=== PATIENT | female | born 1945 | race Caucasian/White ===

== ENCOUNTER 2016-04-16 16:28 | Inpatient (IN) | payer OTHER ==
[~2016-04-16] VITALS: Ht 162.6 cm; Wt 53.2 kg
[2016-04-16 17:24] LABS: HEMATOCRIT 37.5 % (36.0-46.0); MCH 30.2 PG (29.0-34.0); MCHC 34.1 G/DL (30.0-36.0); MCV 88.4 FL (83-99); MEAN PLAT.VOLUME 10.9 uM^3 (9.5-12.4); PLATELET COUNT 372 K/uL (156-360); RBC DIS.WIDTH-CV 13.7 % (11.8-14.6); RBC DIS.WIDTH-SD 43.4 % (39-53); RED BLOOD COUNT 4.24 M/uL (3.80-5.20); WHITE BLOOD COUNT 13.4 K/uL (4.1-10.2)
[2016-04-16 17:35] LABS: CHLORIDE 98 mEq/L (99-109); POTASSIUM 2.7 mEq/L (3.7-5.4); SODIUM 139 mEq/L (136-147)
[2016-04-16 17:37] LABS: GLUCOSE 85 mg/dL (70-99)
[2016-04-16 17:38] LABS: ANION GAP 15 MEQ/L (2-14)
[2016-04-16 17:39] LABS: TOTAL BILIRUBIN 0.3 mg/dL (0.0-1.0)
[2016-04-16 17:40] LABS: ALKALINE PHOSPHATASE 159 IU/L (3-129)
[2016-04-16 17:41] LABS: GFR ESTIMATE (CALCULATED) 58 mL/min/
[2016-04-16 17:42] LABS: UREA NITROGEN (BUN) 17 mg/dL (9-23)
[2016-04-16 18:53] LABS: INTER. NORMALIZED RATIO 1.1; PROTHROMBIN TIME 10.8 (9.2-11.2); PTT 31.7 (25-32)
[2016-04-16 19:19] LABS: MAGNESIUM 1.9 mg/dL (1.3-2.7)
[2016-04-16 19:30] LABS: TROP-I INTERPRETATION NEGATIVE; TROPONIN-I 0.02 ng/mL (0.0-0.30)
[2016-04-16 21:05] LABS: ADD MIUA? NO; BILIRUBIN NEGATIVE; BLOOD NEGATIVE; COLOR YELLOW ((YELLOW)); GLUCOSE (STRIP) NEGATIVE; KETONES 5; LEUKOCYTES NEGATIVE; NITRITE NEGATIVE; PROTEIN (STRIP) 30; SPECIFIC GRAVITY 1.029 (1.000-1.030); UCUL ADDED? NO; UROBILINOGEN 0.2 MG/DL (0.2-1.0)
[2016-04-16] MEDS ORDERED: ADVIL200 MG PO (22:07)
[2016-04-16] MEDS ORDERED: THERAGRAN1 TABLET PO (22:08)
[2016-04-16] MEDS ORDERED: TYLENOL EXTRA500 MG PO (22:08)
[2016-04-17] VITALS (7 sets, daily range): BP systolic 120–187; BP diastolic 63–99
[2016-04-17 07:20] LABS: HEMATOCRIT 32.5 % (36.0-46.0); MCH 30.5 PG (29.0-34.0); MCHC 33.8 G/DL (30.0-36.0); PLATELET COUNT 323 K/uL (156-360); RBC DIS.WIDTH-CV 14.1 % (11.8-14.6); RBC DIS.WIDTH-SD 46.8 % (39-53); RED BLOOD COUNT 3.61 M/uL (3.80-5.20)
[2016-04-17 07:42] LABS: ALKALINE PHOSPHATASE 114 IU/L (3-129); ANION GAP 7 MEQ/L (2-14); CHLORIDE 104 MEQ/L (99-109); GFR ESTIMATE (CALCULATED) > 59 mL/min/; GLUCOSE 132 mg/dL (70-99); POTASSIUM 4.3 MEQ/L (3.7-5.4); SAMPLE HEMOLYSIS CHECK 0; SAMPLE ICTERIC CHECK 0; SAMPLE LIPEMIA CHECK 0; SODIUM 138 MEQ/L (136-147); TOTAL BILIRUBIN 0.4 MG/DL (0.0-1.0); UREA NITROGEN (BUN) 12 mg/dL (9-23)
[2016-04-17 09:33] LABS: HDL CHOLESTEROL 28 MG/DL (Desirable>=50); LDL CHOLESTEROL 58 mg/dL (Desirable<100); NON-HDL CHOLESTEROL 79 mg/dL (Desirable<160); TOTAL CHOLESTEROL 107 mg/dL (Desirable<200); TRIGLYCERIDES 104 MG/DL (Normal: <150)
[2016-04-17 09:44] LABS: Estimated Average Glucose 128 mg/dL (70-123); HEMOGLOBIN A1c (GLYCOHEMOGLOB) 6.1 % HGB (Below 5.7)
[2016-04-18 03:10] VITALS: BP 182/89
[2016-04-18 06:28] LABS: EOSINOPHIL (%) 2.9 % (0-5); EOSINOPHIL COUNT 0.3 K/uL (0-0.3); HEMATOCRIT 35.4 % (36.0-46.0); IMMATURE GRANULOCYTE (%) 0.4 % (0.0-0.7); LYMPHOCYTE COUNT 0.7 K/uL (1.0-2.8); MCH 29.1 PG (29.0-34.0); MCHC 31.6 G/DL (30.0-36.0); MCV 91.9 FL (83-99); MEAN PLAT.VOLUME 10.7 uM^3 (9.5-12.4); MONOCYTE (%) 9.3 % (3-12); MONOCYTE COUNT 0.9 K/uL (0-0.8); NEUTROPHIL (%) 80.3 % (45-76); PLATELET COUNT 359 K/uL (156-360); RBC DIS.WIDTH-CV 14.4 % (11.8-14.6); RBC DIS.WIDTH-SD 48.1 % (39-53); RED BLOOD COUNT 3.85 M/uL (3.80-5.20)
[2016-04-18 07:03] LABS: ANION GAP 7 MEQ/L (2-14); CHLORIDE 103 MEQ/L (99-109); GFR ESTIMATE (CALCULATED) > 59 mL/min/; GLUCOSE 99 mg/dL (70-99); MAGNESIUM 1.7 mg/dl (1.3-2.7); POTASSIUM 4.3 MEQ/L (3.7-5.4); SAMPLE HEMOLYSIS CHECK 0; SAMPLE ICTERIC CHECK 0; SAMPLE LIPEMIA CHECK 0; SODIUM 139 MEQ/L (136-147); UREA NITROGEN (BUN) 9 mg/dL (9-23)
[2016-04-18 07:58] VITALS: BP 146/80
[2016-04-18 16:11] VITALS: BP 181/88
[2016-04-18 19:47] VITALS: BP 183/88
[2016-04-18 23:32] VITALS: BP 168/80
[2016-04-19] VITALS (7 sets, daily range): BP systolic 115–179; BP diastolic 60–91
[2016-04-20 03:49] VITALS: BP 136/80
[2016-04-20 06:55] VITALS: BP 157/77
[2016-04-20 11:45] VITALS: BP 166/73
[2016-04-20 15:08] VITALS: BP 155/74
[2016-04-20 19:00] VITALS: BP 157/70
[2016-04-21] VITALS (7 sets, daily range): BP systolic 125–173; BP diastolic 59–80
[2016-04-22 03:22] VITALS: BP 163/74
[2016-04-22 07:30] VITALS: BP 164/82
[2016-04-22 07:41] LABS: EOSINOPHIL (%) 4.1 % (0-5); EOSINOPHIL COUNT 0.3 K/uL (0-0.3); IMMATURE GRANULOCYTE (%) 0.4 % (0.0-0.7); LYMPHOCYTE COUNT 0.9 K/uL (1.0-2.8); MCH 30.6 PG (29.0-34.0); MCHC 33.6 G/DL (30.0-36.0); MCV 90.9 FL (83-99); MEAN PLAT.VOLUME 10.8 uM^3 (9.5-12.4); MONOCYTE (%) 12.3 % (3-12); NEUTROPHIL (%) 72.2 % (45-76); PLATELET COUNT 383 K/uL (156-360); RBC DIS.WIDTH-CV 14.5 % (11.8-14.6); RBC DIS.WIDTH-SD 47.8 % (39-53); RED BLOOD COUNT 3.63 M/uL (3.80-5.20); WHITE BLOOD COUNT 8.3 K/uL (4.1-10.2)
[2016-04-22 08:04] LABS: ANION GAP 11 MEQ/L (2-14); CHLORIDE 104 MEQ/L (99-109); GFR ESTIMATE (CALCULATED) > 59 mL/min/; GLUCOSE 80 mg/dL (70-99); POTASSIUM 3.8 MEQ/L (3.7-5.4); SAMPLE HEMOLYSIS CHECK 0; SAMPLE ICTERIC CHECK 0; SAMPLE LIPEMIA CHECK 0; SODIUM 141 MEQ/L (136-147); UREA NITROGEN (BUN) 9 mg/dL (9-23)
[2016-04-22 11:50] VITALS: BP 144/70
[2016-04-22 15:50] VITALS: BP 123/58
[2016-04-23 00:22] VITALS: BP 114/63
[2016-04-23 03:09] VITALS: BP 144/69
[2016-04-23 07:38] VITALS: BP 149/69
[2016-04-23] MEDS ORDERED: FLAGYL500 MG PO (11:08)
[2016-04-23] MEDS ORDERED: BACTRIM,SEPT1 TABLET PO (11:08)
[2016-04-23] MEDS ORDERED: LOPRESSOR50 MG PO (12:12)
[2016-04-23] MEDS ORDERED: AMLODIPINE BESY10 MG PO (12:12)
== END 2016-04-23 13:22 | disposition home or self-care (01) | DRG 373 ==
LOC: EME 16:28 → 2EAST 22:20 → EDOF 22:20 → 2EAST 04-17 04:25
PROVIDERS: Internal Medicine; Surgery
PROC: 0W9J30Z Drainage of Pelvic Cavity with Drainage Device, Percutaneous Approach (ICD-10-PCS; principal; 2016-04-16)
DX: K35.2 Acute appendicitis with generalized peritonitis (principal); I10 Essential (primary) hypertension; E87.6 Hypokalemia; R73.03 Prediabetes; J44.9 Chronic obstructive pulmonary disease, unspecified; N20.0 Calculus of kidney; K76.89 Other specified diseases of liver; F17.210 Nicotine dependence, cigarettes, uncomplicated
CPT/HCPCS: 49406; 71020; 74176; 74177; 74178; 80048; 80053; 80061; 81003; 83036; 83735; 84484; 85025; 85027; 85610; 85730; 86850; 86900; 86901; 87040; 87070; 87075; 87076; 87185; 87205; 93005; 94799; 99202; 99281; 99285; C1729; C1769; J1170; J1450; J1650; J2405; J2543; J3010; J3480; J7050; S0030

== ENCOUNTER → 2016-04-30 | Outpatient (CLI) | payer OTHER ==
[~2016-04-30] MED LIST: ADVIL200 MG PO; AMLODIPINE BESY10 MG PO; BACTRIM,SEPT1 TABLET PO; FLAGYL500 MG PO; LOPRESSOR50 MG PO; THERAGRAN1 TABLET PO; TYLENOL EXTRA500 MG PO
== END | disposition home or self-care (01) ==
LOC: RAD 09:37
DX: K35.3 Acute appendicitis with localized peritonitis (principal); N20.0 Calculus of kidney; K76.89 Other specified diseases of liver
CPT/HCPCS: 74177